=== PATIENT | male | born 1990 | race American Indian/Alaskan Native ===

== ENCOUNTER 2016-11-02 12:46 | Emergency (ER) | payer BC ==
[2016-11-02 13:09] VITALS: BP 120/85
[2016-11-02 13:40] LABS: Basophils % (Auto) 0.6 % (0.0-1.8); Eosinophils % (Auto) 0.8 % (0.0-4.3); Hematocrit 40.6 % (35.5-45.6); Hemoglobin 13.1 gm/dl (11.8-15.2); Mean Corpuscular HGB Conc 32 % (32-34); Mean Corpuscular Hemoglobin 26 pg (28-32); Mean Corpuscular Volume 81 fl (84-94); Platelet Count 309 K/mm3 (140-440); Red Blood Count 5.02 M/mm3 (3.65-5.03); Red Cell Distribution Width 18.2 % (13.2-15.2)
[2016-11-02 13:55] LABS: Alanine Aminotransferase 10 units/L (7-56); Albumin 3.4 g/dL (3.9-5); BUN/Creatinine Ratio 7.77; Blood Urea Nitrogen 7 mg/dL (9-20); Calcium 9.4 mg/dL (8.4-10.2); Carbon Dioxide 23 mmol/L (22-30); Glucose 81 mg/dL (75-100); Total Protein 8.7 g/dL (6.3-8.2)
[2016-11-02 13:56] LABS: Albumin/Globulin Ratio 0.6 %; Alkaline Phosphatase 95 units/L (35-129); Anion Gap 19 mmol/L; Chloride 103.1 mmol/L (98-107); Lipase 9 units/L (13-60); Potassium 3.9 mmol/L (3.6-5.0); Sodium 141 mmol/L (137-145)
--- NOTE | 2016-11-07 11:23 | ED Elopement Review ---
ED Pt Elopement review - Results review Lab results: Laboratory Tests 11/02/16 11/02/16 13:13 13:13 WBC 15.0 H RBC 5.02 Hgb 13.1 Hct 40.6 MCV 81 L MCH 26 L MCHC 32 RDW 18.2 H Plt Count 309 Lymph % (Auto) 12.4 L Finney % (Auto) 4.9 Eos % (Auto) 0.8 Baso % (Auto) 0.6 Lymph # 1.9 Finney # 0.7 Eos # 0.1 Baso # 0.1 Seg Neutrophils % 81.3 H Seg Neutrophils # 12.2 H Sodium 141 Potassium 3.9 Chloride 103.1 Carbon Dioxide 23 Anion Gap 19 BUN 7 L Creatinine 0.9 Estimated GFR > 60 BUN/Creatinine Ratio 7.77 Glucose 81 Calcium 9.4 Total Bilirubin 0.60 AST 12 ALT 10 Alkaline Phosphatase 95 Total Protein 8.7 H Albumin 3.4 L Albumin/Globulin Ratio 0.6 Lipase 9 L - Call Back decision Pt Call Back Decision: No action required
== END 2016-11-02 19:10 | disposition left against medical advice (07) ==
LOC: ED 12:46
DX: R10.9 Unspecified abdominal pain (principal); R11.2 Nausea with vomiting, unspecified; R19.7 Diarrhea, unspecified; Z53.21 Procedure and treatment not carried out due to patient leaving prior to being seen by health care provider
CPT/HCPCS: 36415; 80053; 83690; 85025